=== PATIENT | female | born 1985 | race Two or more races ===

== ENCOUNTER 2024-12-16 15:31 | Emergency (ER) | payer MEDICAID, SELFPAY ==
--- NOTE | 2024-12-16 15:51 | PC.NURSE ---
NO CODE STROKE PER MD GAMBLE
[2024-12-16 16:14] VITALS: BP 129/89; PULSE 69; RESP 18; TEMP 37.1; O2SAT 98
--- NOTE | 2024-12-16 16:17 | XR_ITS ---
Examination: CT brain head without contrast. 2-D sagittal coronal reconstructions Date and time of exam:December 16, 2024 1641 hrs. Indications: Onset left-sided facial droop beginning 3:00 AM this morning CTDI: vol (mGy):45.9 DLP: (mGycm):858 Technique: Multiple CT axial sections of the brain have been obtained, 5 mm slice thickness. Contrast has not been administered. 2-D sagittal, coronal reconstructions have been obtained Low dose protocols were performed. One or more of the following dose reduction techniques were used; automated exposure control, adjustment of the mA and/or KV according to patient size, use of iterative reconstruction technique. Findings: No significant ventricular enlargement. Intra-axial or extra-axial hemorrhage density is not seen. No mass effect or midline shift Basal cisterns are not remarkable. Fourth ventricle is midline. Cranial vault intact. Impression: Negative for acute hemorrhage, mass effect or midline shift As clinically warranted, brain MRI MRA without contrast, stroke protocol, would best assess for demyelinating disease, acute ischemic change
--- NOTE | 2024-12-16 16:17 | PD.EDRME ---
Rapid Medical Screening Exam RME Arrival date/time: 12/16/24 15:31 38 year old female present to ED for c/o of left facial droop last night. I have greeted and performed a focused initial assessment of this patient. A comprehensive ED assessment and evaluation of the patient, analysis of all test results, and completion of the medical decision making process will be conducted by additional ED providers. Chief Complaint: General Adult/Misc Complain Time Seen by Provider: 12/16/24 16:10 Vital signs: Vital Signs Temperature 98.7 F 12/16/24 16:14 Pulse Rate 69 12/16/24 16:14 Respiratory Rate 18 12/16/24 16:14 Blood Pressure 129/89 H 12/16/24 16:14 Pulse Oximetry (%) 98 12/16/24 16:14 Oxygen Delivery Method Room Air 12/16/24 16:14
[2024-12-16 19:57] VITALS: BP 134/91; PULSE 71; RESP 18; TEMP 36.8; O2SAT 98
[2024-12-16 21:38] VITALS: BP 136/93; PULSE 67; RESP 19; TEMP 36.8; O2SAT 97
--- NOTE | 2024-12-17 04:40 | EDNOTE_ITS ---
ED General RME/HPI General Chief complaint: General Adult/Misc Complain Stated complaint: LEFT SIDE FALLING ASLEEP LKW 0300 Time Seen by Provider: 12/16/24 16:10 Arrival date/time: 12/16/24 15:31 RME / HPI RME / HPI narrative: 12/16/24 15:31 38 year old female present to ED for c/o of left facial droop last night. I have greeted and performed a focused initial assessment of this patient. A comprehensive ED assessment and evaluation of the patient, analysis of all test results, and completion of the medical decision making process will be conducted by additional ED providers. DR. SELVIN JACOME ED EVALUATION: Patient is a 38-year-old female who presented to the emergency department complaining of right sided facial weakness and tingling. Patient denies weakness, numbness or tingling to any other part of the body besides the face. No issues with speaking or swallowing. No balance issues. No difficulties ambulating. No difficulties with vision or visual changes. Patient has no vertigo or balance problems. 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 PO QDAY rubio's palsy 7 days 12/16/24 #7 tabs valacyclovir 1 gram tablet 1,000 mg PO TID 7 days #21 tabs 12/16/24 (Valtrex) prednisone 50 mg tablet 50 mg PO QDAY rubio's palsy # 7 tabs 12/17/24 valacyclovir 1 gram tablet 1,000 mg PO TID rubio's pals y 7 12/17/24 days #21 tabs Allergies Allergy/AdvReac Type Severity Reaction Status Date / Time No Known Allergies Allergy Verified 12/16/24 15:38 Review of Systems Review of Systems Systems Reviewed: All systems reviewed, normal except as documented Narrative Review of Systems: GEN: No fever, no chills, no weight loss EYES: No discharge, no visual changes, no pain HEENT: No ear pain, no congestion, no sore throat PULM: No shortness of breath, no cough, no congestion CV: No chest pain, no dyspnea on exertion, no palpitations GI: No nausea, no vomiting, no diarrhea, no pain, no constipation : No frequency, no urgency and no dysuria MUSC/SKEL: No joint pain, no back pain SKIN: No rash PSYCH: No hallucinations, no depression HEME/LYMPH: No easy bleeding or bruising tendencies NEURO: No headache, + right sided facial weakness and tingling Past Medical History Past Medical History ENDOCRINE: Positive Diabetes Mellitus Type 2 Social History SMOKING STATUS: Never smoker SUBSTANCE USE: does not use ALCOHOL: Never ED Exam Narrative Physical exam: GENERAL APPEARANCE:? alert and oriented x 4, well-developed, well-nourished, no acute distress HEENT: Atraumatic; pupils equal, round, reactive to light; EOMI; mucous membranes pink, moist; oropharynx clear NECK: Supple LUNGS: CTABL; no wheezes, no rales, no rhonchi HEART: Regular rate, regular rhythm; normal S1, S2; no murmurs ABDOMEN: non distended; normal BS;? soft, no tenderness, no guarding, no rebound; no masses, no organomegaly, no hernia?? BACK:? no CVA tenderness EXTREMITIES:? atraumatic; no edema NEUROLOGIC: Awake; alert and oriented. Patient has right sided facial droop including the forehead. There is no forehead sparing. This is Rubio's palsy. PSYCHIATRIC:? appropriate mood and affect SKIN: warm, dry, normal color; no rashes Course Quality Measures none Orders Category Date Time Status CT head/brain wo con Stat Exams 12/16/24 16:17 Completed Vital Signs Vital signs: Vital Signs Temperature 98.7 F 12/16/24 16:14 Pulse Rate 69 12/16/24 16:14 Respiratory Rate 18 12/16/24 16:14 Blood Pressure 129/89 H 12/16/24 16:14 Pulse Oximetry (%) 98 12/16/24 16:14 Oxygen Delivery Method Room Air 12/16/24 16:14 [facility] Patient data External records reviewed:: None (no previous visits) Clinical information provided by:: patient Social determinants that could affect healthcare access:: none Patient has the following chronic illnesses:: Diabetes How is presenting disease/condition affected by chronic disease/condition?: uneffected by Evaluation data The following diagnostics were reviewed and interpreted by me:: radiology exam(s) Lab and/or radiology exams considered but not ordered:: none Interpretation Summary: Procedure(s): CT head/brain wo con Accession Number(s): [id number] cc: Carlo Lai MD; Derek Colunga MD; Bi Kearney PA-C~ Examination: CT brain head without contrast. 2-D sagittal coronal reconstructions Date and time of exam:December 16, 2024 1641 hrs. Indications: Onset left-sided facial droop beginning 3:00 AM this morning CTDI: vol (mGy):45.9 DLP: (mGycm):858 Technique: Multiple CT axial sections of the brain have been obtained, 5 mm slice thickness. Contrast has not been administered. 2-D sagittal, coronal reconstructions have been obtained Low dose protocols were performed. One or more of the following dose reduction techniques were used; automated exposure control, adjustment of the mA and/or KV according to patient size, use of iterative reconstruction technique. Findings: No significant ventricular enlargement. Intra-axial or extra-axial hemorrhage density is not seen. No mass effect or midline shift Basal cisterns are not remarkable. Fourth ventricle is midline. Cranial vault intact. Impression: Negative for acute hemorrhage, mass effect or midline shift As clinically warranted, brain MRI MRA without contrast, stroke protocol, would best assess for demyelinating disease, acute ischemic change Dictated By: Derek Colunga MD Medications Medications considered but not ordered:: none Medication administrations:: none Consultations Consultation(s) initiated? (list below): No Diagnosis Differential Diagnosis ED Complaint MDM: Rubio's Palsy, TIA, CVA Most likely diagnosis given after review of the tests above:: Rubio's Palsy Admission Indicated Admission indicated?: not indicated Explain why admission is indicated or not indicated:: Patient has no emergent abnormalities on his studies and can be managed on an outpatient basis. Admission Request Was there a request for admission?: No Disposition Plan Disposition Plan: Discharge Discharge Attestation Discharge Attestation: The patient and all family members were given an opportunity to ask questions and understood the discharge instructions. Discharge instructions specifically effects, indications for sooner follow up or return to the emergency department, and the expected course of current diagnosis. Patient condition: Stable Medical Decision Making MDM Narrative MDM Narrative: On exam the patient has right sided facial droop including the forehead. There is no forehead sparing. This is Rubio's palsy. A CT head was ordered by the triage nurse practitioner. Strict return and follow-up instructions given and patient voiced understanding and agreement. Differential Diagnosis Differential Diagnosis: Rubio's Palsy, TIA, CVA Discharge Plan Plan Patient Disposition: HOME (Self Care) Disposition Comment: Stable for discharge Patient condition on transfer: Stable Prescriptions/Referrals Prescriptions/Med Rec: New prednisone 50 mg tablet 50 mg PO QDAY 7 Days Qty: 7 0RF valacyclovir [Valtrex] 1 gram tablet 1,000 mg PO TID 7 Days Qty: 21 0RF Clear Eyes Complete 0.025-0.2-0.5 % drops 2 drp ophthalmic (eye) QID PRN (Reason: right eye) Qty: 15 0RF prednisone 50 mg tablet 50 mg PO QDAY Qty: 7 0RF valacyclovir 1 gram tablet 1,000 mg PO TID 7 Days Qty: 21 0RF No Action metformin 1,000 mg tablet 1,000 mg PO Referrals: [facility] [Outside] - In 1 week Carlo Lai MD [Primary Care Provider] - In 1 week Problem List Clinical Impression: Rubio's palsy Patient/Caregiver Discharge Instructions Discharge Activity: activity as tolerated Education Materials: ED Rubio's Palsy Additional Instructions: Today you were seen in the emergency department and evaluated for your facial droop. You have something called Rubio's palsy. This is an inflammation of the facial nerve on 1 side of the face. You have weakness and paralysis of the right side of your face. This usually lasts about a week to several months long. There are some medications which may help you and I have called in 2 prescriptions at your pharmacy. One of them is called prednisone and you should take 1 tab every day until they are completely gone. The other is an antiviral medication. Please take these until they are completely gone as well. You will also need to use drops in your right eye as you will be able to blink that eye as well as normal. At night you need to take that eye closed and be sure that it is completely taped closed so that it does not dry out overnight. As always you should follow-up with your primary care doctor within the next several days and return to the ER if you notice any worsening or if you are not improving in the next several days and we will help you. Print Language: Libyan Stand Alone Forms: [employer] Award Info., Patient Portal Info Letter
== END 2024-12-16 21:43 | disposition home or self-care (01) ==
PROVIDERS: Emergency Provider Emergency Medicine; PCP Family Medicine
DX: G51.0 Bell's palsy (principal)
CPT/HCPCS: 70450; 99284